=== PATIENT | male | born 1975 | race Hispanic/Latino ===

== ENCOUNTER 2017-01-16 03:14 | Emergency (ER) | payer SELFPAY ==
[2017-01-16 03:06] VITALS: BMI 27.8
[2017-01-16 03:07] VITALS: BP 117/73; PULSE 100; RESP 18; TEMP 100.3; O2SAT 96
--- NOTE | 2017-01-16 03:26 | ED PDOC ---
Arrival/HPI - General Chief Complaint: Chest Pain Time Seen by Provider: 01/16/17 03:18 Historian: Patient - History of Present Illness Narrative History of Present Illness (Text): 01/16/17 03:21 Randy [id number] is a 39 year old male smoker, whose past medical history includes cocaine use and IV heroin abuse, who presents to the Emergency department complaining of chest pain. Patient states he woke up tonight experiencing chest pain with associated fever and back pain. Patient states he last injected heroine a few days prior. Patient denies drinking any alcohol tonight. Patient denies any shortness of breath, nausea, vomiting, diarrhea, urinary symptoms, back pain, neck pain, headache, dizziness, or any other complaints. Time/Duration: Other (tonight) Symptom Onset: Gradual Symptom Course: Unchanged Activities at Onset: Rest, Light Context: Home Past Medical History - Provider Review Nursing Documentation Reviewed: Yes - Infectious Disease Hx of Infectious Diseases: None - Psychiatric Hx Substance Use: No (denies) - Anesthesia Hx Anesthesia: No Family/Social History - Physician Review Nursing Documentation Reviewed: Yes Family/Social History: No Known Family HX Smoking Status: Unknown If Ever Smoked Hx Alcohol Use: No (denies) Hx Substance Use: No (denies) Allergies/Home Meds Allergies/Adverse Reactions: Allergies Unobtainable Allergy (Verified 01/16/17 03:06) Review of Systems - Physician Review All systems were reviewed & negative as marked: Yes - Review of Systems Constitutional: Fevers Eyes: Normal ENT: Normal Respiratory: Normal. absent: SOB Cardiovascular: Chest Pain Gastrointestinal: Normal. absent: Abdominal Pain, Diarrhea, Nausea, Vomiting Genitourinary Male: Normal. absent: Dysuria, Frequency, Hematuria, Urinary Output Changes Musculoskeletal: Back Pain. absent: Neck Pain Skin: Normal. absent: Rash Neurological: Normal. absent: Headache, Dizziness Endocrine: Normal Hemo/Lymphatic: Normal Psychiatric: Normal Physical Exam Vital Signs Reviewed: Yes Vital Signs Temp Pulse Resp BP Pulse Ox 01/16/17 03:40 100.3 F H 01/16/17 03:06 100.3 F H 100 H 18 117/73 96 Temperature: Febrile Blood Pressure: Normal Pulse: Regular Respiratory Rate: Normal Appearance: Positive for: Well-Appearing, Non-Toxic, Comfortable Pain Distress: None Mental Status: Positive for: Alert and Oriented X 3 - Systems Exam Head: Present: Atraumatic, Normocephalic Pupils: Present: PERRL Extroacular Muscles: Present: EOMI Conjunctiva: Present: Normal Mouth: Present: Moist Mucous Membranes Neck: Present: Normal Range of Motion Respiratory/Chest: Present: Clear to Auscultation, Good Air Exchange. No: Respiratory Distress, Accessory Muscle Use Cardiovascular: Present: Regular Rate and Rhythm, Normal S1, S2. No: Murmurs Abdomen: Present: Normal Bowel Sounds. No: Tenderness, Distention, Peritoneal Signs Back: Present: Normal Inspection Upper Extremity: Present: Normal Inspection. No: Cyanosis, Edema Lower Extremity: Present: Normal Inspection. No: Edema Neurological: Present: GCS=15, CN II-XII Intact, Speech Normal Skin: Present: Warm, Dry, Normal Color. No: Rashes Psychiatric: Present: Alert, Oriented x 3, Normal Insight, Normal Concentration Medical Decision Making ED Course and Treatment: 01/16/17 03:21 Impression: 39 year old male complaining of chest pain, fever, and back pain tonight. Plan: -- EKG -- Chest X-ray -- Labs, cardiac enzymes, blood cultures, alcohol level -- Urinalysis, urine cultures, urine drug screen -- Reassess and disposition Progress Notes: Reviewed EKG, NSR at [address]-segment elevations or depressions, no T- wave inversions, normal intervals. 01/16/17 03:46 Notified by RN pt refused bloodwork. 01/16/17 04:46 Reviewed radiology, Chest X-ray shows no active disease. 01/16/17 05:52 Pt refusing full ER evaluation. Pt was advised the risks of refusing full evaluation including possibility of underlying heart disease/infection/. Pt states he understands but continues to refuse further treatment or admission to the hospital. The patient is alert, oriented, and shows the mental capacity to make clear decisions regarding the patients health care at this time. The patient continues to wish to leave against medical advice. The patient has been advised that they should return to the emergency room immediately if they change their mind at any time, or if their condition begins to change or worsen in any way. - RAD Interpretation Radiology Orders: 01/16/17 03:23 CHEST PORTABLE [RAD] Stat Point Of Care Technician: ED Physician - EKG Interpretation Interpreted by ED Physician: Yes Type: 12 lead EKG - Medication Orders Current Medication Orders: Discontinued Medications Acetaminophen (Tylenol 325mg Tab) 650 mg PO STAT STA Stop: 01/16/17 03:28 Last Admin: 01/16/17 03:40 Dose: 650 MG MAR Pain/Vitals Document 01/16/17 03:40 RD (Rec: 01/16/17 03:50 RD [id number]) Pain Reassessment Is This A Pain ReAssessment? No Sleep Is patient sleeping during reassessment? No Presence of Pain Presence of Pain No Vitals Temperature (97.6 F-99.6 F) 100.3 F Temperature Source Oral - Scribe Statement The provider has reviewed the documentation as recorded by the Gueritaibkita Oneal Provider Attestation: All medical record entries made by the Gueritaibkita were at my direction and personally dictated by me. I have reviewed the chart and agree that the record accurately reflects my personal performance of the history, physical exam, medical decision making, and the department course for this patient. I have also personally directed, reviewed, and agree with the discharge instructions and disposition. Disposition/Present on Arrival - Present on Arrival Any Indicators Present on Arrival: No History of DVT/PE: No History of Uncontrolled Diabetes: No Urinary Catheter: No History of Decub. Ulcer: No History Surgical Site Infection Following: None - Disposition Have Diagnosis and Disposition been Completed?: Yes Diagnosis: Chest pain Disposition: AGAINST MEDICAL ADVICE Disposition Time: 05:49 Condition: STABLE Discharge Instructions (ExitCare): Chest Pain (ED)
--- NOTE | 2017-01-16 08:32 | RAD ---
HISTORY: fever COMPARISON: No prior. FINDINGS: LUNGS: No active pulmonary disease. PLEURA: No significant pleural effusion identified, no pneumothorax apparent. CARDIOVASCULAR: Normal. OSSEOUS STRUCTURES: No significant abnormalities. VISUALIZED UPPER ABDOMEN: Normal. OTHER FINDINGS: None. IMPRESSION: No active disease.
== END 2017-01-16 06:17 | disposition left against medical advice (07) ==
LOC: ED 03:14
DX: R07.9 Chest pain, unspecified (principal)